=== PATIENT | female | born 1975 | race Caucasian/White ===

== ENCOUNTER 2016-10-24 15:30 | Emergency (ER) | payer SELFPAY ==
[2016-10-24 16:52] LABS: #Basophils 0.1 thou/uL (0.0-0.2); #Eosinphils 0.3 thou/uL (0.0-0.7); #Lymphocytes 1.2 thou/uL (1.20-3.40); #Monocytes 0.3 thou/uL (0.11-0.59); #Neutrophils 6.1 thou/uL (1.40-6.50); %Basophils 0.9 % (0.0-1.0); %Eosinophils 3.3 % (0.0-10.0); %Lymphocytes 15.4 % (21.0-51.0); %Monocytes 4.3 % (0.0-10.0); Hematocrit 42.9 % (36.0-47.0); Mean Platelet Volume 8.8 fL (7.4-10.4)
[2016-10-24 17:14] LABS: ALT (SGPT) 39 U/L (0-55); AST (SGOT) 23 U/L (5-34); Alkaline Phosphatase 46 U/L (40-150); Anion Gap 15 mmol/L (10-20); BUN (Urea Nitrogen) 12 mg/dL (7.0-18.7); Bilirubin, Total 0.5 mg/dL (0.2-1.2); CK (CPK) 161 U/L (29-168); Calc. Creatinine Clearance 0 mL/min (70-130); Calcium 9.7 mg/dL (7.8-10.44); Carbon Dioxide 23 mmol/L (22-29); Chloride 104 mmol/L (98-107); Estimated GFR-MDRD 78; Globulin 3.1 g/dL (2.4-3.5); Protein, Total 7.4 g/dL (6.0-8.3)
[2016-10-24 17:15] LABS: Troponin I Less than 0.010 ng/mL (< 0.028)
--- NOTE | 2016-10-24 18:46 | RAD ---
TWO VIEWS CHEST: Date: 10-24-16 Comparison: 05-23-15 History: Chest pain on the right radiating to the back. FINDINGS: No pneumothorax, pleural fluid, focal consolidation, or alveolar edema. Heart and mediastinal conto urs appear within normal limits. IMPRESSION: No acute findings. POS: [facility]
[2016-10-24 18:55] LABS: Troponin I Less than 0.010 ng/mL (< 0.028)
--- NOTE | 2016-10-24 19:51 | ERRECORD ---
[facility] EMERGENCY RECORD HPI CHEST PAIN (19:19 JROB) CHIEF COMPLAINT: Patient presents for evaluation of chest pain, ongoing. HISTORIAN: History provided by patient. LOCATION: Pain radiates, to the back, left upper chest. QUALITY: dull. SEVERITY: Current severity of pain rated as 5/10. TIME COURSE: Symptoms are worsening. ASSOCIATED WITH: No associated chills, No associated cough, No associated diaphoresis, No associated fever, No associated shortness of breath, No associated trauma, No associated upper respiratory infection, No associated vomiting. EXACERBATED BY: Patient's condition exacerbated by nothing. RELIEVED BY: Patient's condition relieved by nothing. RISK FACTORS: Coronary artery disease risk factors, not applicable for this patient, Thoracic aortic dissection risk factors, not applicable for this patient, Pulmonary embolism risk factors, not applicable to this patient. HEART SCORE: Patients history is Slightly Suspicious (0), Patients ECG is normal (0), Patients age is equal to or less than 45 (0), Patient has no risk factors known (0), Patients Troponin is equal to or less than 1 times the normal limit (0). WELLS CRITERIA FOR PE: No clinical signs and symptoms of a DVT (0), Patient does not have, or is likely to not have, a primary diagnosis of PE (0), Patient's heart rate is less than 100 (0), Patient has no history of immobilization within 3 days, nor any surgical history within the past 4 weeks (0), Patient has not had an objectively diagnosed PE or DVT previously (0), Patient does not have hemoptysis (0), Patient has not had treatment for malignancy within the last 6 months, nor palliative (0). ROS (19:21 JROB) CONSTITUTIONAL: Historian denies chills, denies fever. EYES: Historian denies vision changes. ENT: Historian denies sore throat. CARDIOVASCULAR: Historian reports chest pain, denies syncope. RESPIRATORY: Historian denies cough, denies shortness of breath. GI: Historian denies nausea, denies vomiting. GENITOURINARY FEMALE: Historian denies dysuria. NEUROLOGIC: Historian denies headache, denies sensory changes. HEMO/LYMPHATIC: Historian denies abnormal blood clotting. ALLERGIC/IMMUNOLOGIC: Historian denies frequent infections. PSYCHIATRIC: Historian denies alcohol abuse, denies drug abuse. NOTES: All systems reviewed, negative except as described above. PAST MEDICAL HISTORY (15:43 [facility]) MEDICAL HISTORY: No past medical history, Flu vaccine not up to date, Tetanus not up to date, Pneumococcal vaccine not up to &a-1R&a+25V*p+0X*z3816O*c202B*c15G*c2P*p-0X&a-25V&a+1R Name: Marge Damon : 1975 F41 MedRec: [id number] AcctNum: [id number] Prepared: Esperanza Oct 24, 2016 20:02 by Interface Page 1 of 4 pMD [facility] EMERGENCY RECORD date,. FEMALE SURGICAL HISTORY: Surgical history of hysterectomy,. PSYCHIATRIC HISTORY: Psychiatric history includes, depression. SOCIAL HISTORY: Patient denies alcohol use, Patient denies drug use, Patient is a former tobacco user, smoked cigarettes,. KNOWN ALLERGIES codeine (Unconfirmed) codeine sulfate penicillin G (Unconfirmed) penicillin G sodium sulfur: Reaction: Hives Tetanus Toxoid tetanus toxoid, adsorbed (Unconfirmed) CURRENT MEDICATIONS (15:36 BDON) None VITAL SIGNS VITAL SIGNS: BP: 122/82, Pulse: 89, Resp: 18, Temp: 98.8 (Oral), Pain: 5, O2 sat: 99 on Room Air, Time: 10/24/2016 15:39. (15:39 [facility]) BP: 124/66, Pulse: 76, Resp: 20, Temp: 99.2 (Oral), O2 sat: 98 on Room Air, Time: 10/24/2016 19:42. (19:42 [facility]) BP: 124/66, Pulse: 76, Resp: 20, Temp: 99.2, O2 sat: 98 on RA, Time: 10/24/2016 19:43. (19:43 [facility]) PHYSICAL EXAM (19:22 JROB) CONSTITUTIONAL: Vital Signs Reviewed, Patient afebrile, Pulse normal, Blood pressure normal bilaterally, Respiratory rate normal, Patient alert and oriented to person, place and time, Nursing notes reviewed. HEAD: Head exam normal, Head exam included findings of head atraumatic. EYES: Eye exam normal, Pupils equally round and reactive to light, Extraocular muscles intact. ENT: Pharynx exam normal, Mouth exam normal. NECK: Neck exam normal, no cervical adenopathy. RESPIRATORY CHEST: Breath sounds clear, No wheezing, No rales, No rhonchi. CARDIOVASCULAR: Cardiovascular assessment normal, Heart rate regular rate and rhythm, Heart sounds normal. ABDOMEN FEMALE: Abdominal exam included findings of abdomen nontender, no distension, no peritoneal signs. BACK: Back exam normal, Back exam included findings of normal inspection. UPPER EXTREMITY: Upper extremity exam normal, Upper extremity exam included findings of inspection normal, Motor strength normal, Sensation intact. &a-1R&a+25V*p+0X*i5472R*c202B*c15G*c2P*p-0X&a-25V&a+1R Name: Marge Damon : 1975 F41 MedRec: [id number] AcctNum: [id number] Prepared: Esperanza Oct 24, 2016 20:02 by Interface Page 2 of 4 pMD [facility] EMERGENCY RECORD LOWER EXTREMITY: Lower extremity exam normal, Lower extremity exam included findings of inspection normal, Motor strength normal, Sensation intact. NEURO: Neuro exam findings include patient oriented to person, place and time, no focal motor deficits, no focal sensory deficits. SKIN: Skin exam included findings of skin warm, dry. EKG INTERPRETATION (19:23 JROB) 12 LEAD EKG INTERPRETATION: 12 lead EKG interpreted by Emergency Department Physician at time of study, 12 lead EKG shows normal sinus rhythm, Rate (beats per minute): 87, with no ectopics, Interpretation: normal EKG, Conduction normal, ST segments normal, T waves normal, [place] normal, No other findings, Clinical impression: Normal EKG. RADIOLOGYINTERPRETATION (19:24 JROB) CHEST: Chest films negative, no infiltrates, no congestive heart failure, no effusion. DEHORNER: Preliminary review of x-rays by, Radiologist. MEDICATION ADMINISTRATION SUMMARY Drug Name: aspirin oral, Dose Ordered: 324 mg, Route: Oral, Status: Given, Time: 16:40 10/24/2016, Detailed record available in Medication Service section. DOCTOR NOTES (19:24 JROB) TEXT: Gave aspirin, low suspicion for cardiac etiology, will hold off on NTG. Patient has had multiple visits with chest pain in the past that were not cardiac related. EKG is normal. Ordered labs. Enzymes negative x 2. Patient reassured, pain may be anxiety/stress related, versus GI etiology, versus inflammatory etiology. Will d/c home to follow up with pmd. PATIENT STATUS: Patient has improved since arrival to emergency department. PATIENT PLAN: The patient will be discharged, The patient will follow up with primary care physician. DATA REVIEWED: Lab data reviewed, Xray data reviewed, Reviewed EKG. PROBLEM LIST No recorded problems DIAGNOSIS DIFFERENTIAL: Based on history, exam and ancillary studies if indicated: Impression: acute coronary syndrome, Impression: atypical chest pain, Impression: chest pain of unclear etiology, Impression: chest wall pain, Impression: GERD, Impression: Anxiety, Diagnoses &a-1R&a+25V*p+0X*b3683R*c202B*c15G*c2P*p-0X&a-25V&a+1R Name: Marge Damon : 1975 1 MedRec: [id number] AcctNum: [id number] Prepared: Esperanza Oct 24, 2016 20:02 by Interface Page 3 of 4 pMD [facility] EMERGENCY RECORD considered are not limited to those documented above. (19:26 JROB) FINAL: PRIMARY: CHEST PAIN UNSPECIFIED. (19:27 JROB) PRESCRIPTION No recorded prescriptions DISPOSITION PATIENT: Disposition Type: Discharge, Disposition: *Discharge Home. (19:27 JROB) Patient left the department. (19:57 EPIE) Pierce: RAKESH=ANITA Jones, Cleo QUINTERO=ANITA Akbar, Yary ORTIZOB=MD Michele, Miguel Angel FIGUEROA=ANITA Bose, Jose E MCBE=Julianna Jones &a-1R&a+25V*p+0X*i5651R*c202B*c15G*c2P*p-0X&a-25V&a+1R Name: Marge Damon : 1975 F41 MedRec: [id number] AcctNum: [id number] Prepared: Esperanza Oct 24, 2016 20:02 by Interface Page 4 of 4 pMD MTDD
--- NOTE | 2016-10-24 19:53 | PICIS ---
[facility] EMERGENCY RECORD TRIAGE (TueOct 24, 2016 15:35 BDON) TRIAGE NOTES: chest pain that started a couple hours ago. pain started on right side and radiated to back. (TueOct 24, 2016 15:35 BDON) PATIENT: NAME: Marge Damon, AGE: 41, GENDER: female, : Tue1975, TIME OF GREET: TueOct 24, 2016 15:31, PREFERRED LANGUAGE: [place] Island[place], ETHNICITY: Not or , ECODE BILLING MAP: [facility], SSN: [id number], Zip Code: [address], KG WEIGHT: [phone], PHONE: , , , PERSON ID: [id number], PCP: Usha SANCHES JAIME. ([place] Oct 24, 2016 15:35 BDON) COMPLAINT: HIGH RISK COMPLAINT: Chest Pain. (19:07 MCBE) ADMISSION: URGENCY: 2 Emergent, ADMISSION SOURCE: Home, TRANSPORT: CAR, BED: ER -03. ([place] Oct 24, 2016 15:35 BDON) SIRS SCORING: Heart Rate 55-109 (0), Temp range 96.8-101.1 (0), respiratory rate 12-24 (0), Mental Status altered: no (0), Infection or Suspected Infection: No. (15:43 MCBE) TRIAGE SCREENING: Patient denies suicidal ideation, Patient denies presence of domestic violence. (15:43 MCBE) PROVIDERS: TRIAGE NURSE: Cleo Jones RN. ([place] Oct 24, 2016 15:35 BDON) VITAL SIGNS: BP 122/82, Pulse 89, Resp 18, Temp 98.8, (Oral), Pain 5, O2 Sat 99, on Room Air, Time 10/24/2016 15:39. (15:39 MCBE) PREVIOUS VISIT ALLERGIES: codeine sulfate, penicillin G sodium, sulfur, Tetanus Toxoid. ([place] Oct 24, 2016 15:35 BDON) codeine sulfate, penicillin G sodium, sulfur, Tetanus Toxoid. (15:43 MCBE) KNOWN ALLERGIES codeine (Unconfirmed) codeine sulfate penicillin G (Unconfirmed) penicillin G sodium sulfur: Reaction: Hives Tetanus Toxoid tetanus toxoid, adsorbed (Unconfirmed) CURRENT MEDICATIONS (15:36 BDON) None VITAL SIGNS VITAL SIGNS: BP: 122/82, Pulse: 89, Resp: 18, Temp: 98.8 (Oral), Pain: 5, O2 sat: 99 on Room Air, Time: 10/24/2016 15:39. (15:39 MCBE) BP: 124/66, Pulse: 76, Resp: 20, Temp: 99.2 (Oral), O2 sat: 98 on Room Air, Time: 10/24/2016 19:42. (19:42 [facility]) BP: 124/66, Pulse: 76, Resp: 20, Temp: 99.2, O2 sat: 98 on RA, Time: 10/24/2016 19:43. (19:43 [facility]) NURSING ASSESSMENT: FALL RISK (19:12 MCBE) FALL RISK: Fall risk assessment findings include: no history of &a-1R&a+25V*p+0X*m7301Y*c202B*c15G*c2P*p-0X&a-25V&a+1R Name: Marge Damon : 1975 F41 MedRec: [id number] AcctNum: [id number] Prepared: [place] Oct 24, 2016 20:08 by Interface Page 1 of 11 pMD [facility] EMERGENCY RECORD falls (0), No sensory deficits (0), No impaired mobility (0), No confusion (0), Total score 0, No risk for fall. NURSING ASSESSMENT: HEAD-TO-TOE (15:44 MCBE) CONSTITUTIONAL: Complex assessment performed, Patient arrives ambulatory, Gait steady, History obtained from patient, Patient appears comfortable, Patient cooperative, Patient alert, Oriented to person, place and time, Skin warm, Skin dry, Skin normal in color, Mucous membranes pink, Mucous membranes moist, Patient is well-groomed. PAIN: Patient rates pain as 0 out of 10. NEURO: Pupils equally round and reactive to light, Able to close eyes, Face symmetrical, Speech normal, GCS:, Eye opening: (4) - Spontaneous, Verbal: (5) - Oriented/conversive, Motor: (6) - Obeys commands/Spontaneous, GCS Total: 15. ENT: Ear assessment findings include ear normal to inspection, Nasal assessment findings include nose normal to inspection, Mouth and throat assessment findings include mouth inspection normal. RESPIRATORY/CHEST: Breath sounds clear, Respiratory assessment findings include respiratory effort easy, Respirations regular, Conversing normally, Neck and chest exam findings include trachea midline, Chest expansion equal, Chest movement symmetrical, no signs of distress, no retractions noted. CARDIOVASCULAR: Cardiovascular assessment findings include heart rate normal, Heart rhythm normal sinus, Heart sounds normal, S1, S2, Left radial pulse +3(easily palpated, considered normal), Right radial pulse +3(easily palpated, considered normal). ABDOMEN: Abdomen assessment findings include abdomen symmetrical, Abdomen soft, non-tender, Bowel sound normal, no associated nausea, no associated vomiting, no associated diarrhea, no associated constipation. LEFT UPPER EXTREMITY: Left upper extremity assessment findings include capillary refill less than 2 seconds, Skin color normal to hand, Skin temperature to hand warm, Distal sensation intact, Muscle tone normal, radial pulse is +3, brachial pulse is +3, Inspection findings include: No pressure ulcer to the shoulder, Inspection findings include no pressure ulcer to the elbow, Inspection findings include no pressure ulcer. RIGHT UPPER EXTREMITY: Right upper extremity assessment findings include capillary refill less than 2 seconds, Skin color normal to hand, Skin temperature to hand warm, Distal sensation intact, Muscle tone normal, radial pulse is +3, brachial pulse is +3, Inspection findings include: No pressure ulcer to the shoulder, Inspection findings include no pressure ulcer to the elbow, Inspection findings include no pressure ulcer. LEFT LOWER EXTREMITY: Left lower extremity assessment findings include capillary refill less than 2 seconds, Skin color normal, Skin temperature warm, Distal sensation intact, Muscle tone normal, Inspection findings include no pressure ulcers to the hip, Inspection findings include no pressure ulcer to the sacrum, Inspection findings &a-1R&a+25V*p+0X*e7877Q*c202B*c15G*c2P*p-0X&a-25V&a+1R Name: Marge Damon : 1975 F41 MedRec: [id number] AcctNum: [id number] Prepared: [place] Oct 24, 2016 20:08 by Interface Page 2 of 11 pMD [facility] EMERGENCY RECORD include no pressure ulcer to the heel, Inspection findings include no pressure ulcer. RIGHT LOWER EXTREMITY: Right lower extremity assessment findings include capillary refill less than 2 seconds, Skin color normal, Skin temperature warm, Distal sensation intact, Muscle tone normal, Inspection findings include no pressure ulcers to the hip, Inspection findings include no pressure ulcer to the sacrum, Inspection findings include no pressure ulcer to the heel, Inspection findings include no pressure ulcer. NURSING ASSESSMENT: SKIN (19:12 MCBE) SKIN: Skin assessment findings include skin warm, Skin dry, Skin normal in color, Inspection findings include: No pressure ulcer to the shoulder, Inspection findings include no pressure ulcer to the elbow, Inspection findings include no pressure ulcers to the hip, Inspection findings include no pressure ulcer to the sacrum, Inspection findings include no pressure ulcer to the heel, Inspection findings include no pressure ulcer, Inspection findings include no pressure ulcer. YASMANY SCALE: (4) Sensory perception has no impairment, (4) Skin is rarely moist, (4) Patient walks frequently, (4) No mobility limitations, (3) Adequate nutrition, (3) Patient has no apparent problem moving, Yasmany Risk Total: 22. NURSING PROCEDURE: FORGE PRESS OPERATOR (15:43 MCBE) PATIENT IDENTIFIER: Patient actively involved in identification process, Patient's identity verified by patient stating name, Patient's identity verified by patient stating date, Patient's identity verified by hospital ID bracelet. FORGE PRESS OPERATOR: Cardiac monitoring indicated for complaint of chest pain, Patient placed on surveillance monitor, Heart rate: 83, showing normal sinus rhythm, Patient placed on non-invasive blood pressure monitor, with disposable blood pressure cuff applied, Patient placed on continuous pulse oximetry, Adult/pediatric oxisensor applied. NURSING PROCEDURE: DISCHARGE NOTE (19:43 LEE) DISCHARGE: Patient discharged to home, ambulating with assistance, family driving, accompanied by other family member, Summary of Care printed/ provided, Discharge instructions given to patient, Discharge instructions given to mother, Simple or moderate discharge teaching performed, by ERICKA MARINELLI RN, FOLLOWUP WITH PCP IN 1-2 DAYS. HOME DISCHARGE INSTRUCTIONS GIVEN. RETURN IF SYMPTOMS WORSEN OR EMERGENT CONCERNS., Above person(s) verbalized understanding of discharge instructions and follow-up care, Patient treated and evaluated by physician. BELONGINGS: Belongings and valuables with patient at time of discharge include:, Belongings remain with patient, Valuables remain with patient. VITAL SIGNS: BP: 124, / 66, Pulse: 76, Resp: 20, Temp: 99.2, O2 &a-1R&a+25V*p+0X*v9334M*c202B*c15G*c2P*p-0X&a-25V&a+1R Name: Marge Damon : 1975 F41 MedRec: [id number] AcctNum: [id number] Prepared: [place] Oct 24, 2016 20:08 by Interface Page 3 of 11 pMD [facility] EMERGENCY RECORD sat: 98, on: RA. NURSING PROCEDURE: EKG CHART (15:42 MCBE) PATIENT IDENTIFIER: Patient actively involved in identification process, Patient's identity verified by patient stating name, Patient's identity verified by patient stating date, Patient's identity verified by hospital ID bracelet. EKG: EKG indicated for complaint of chest pain. FOLLOW-UP: After procedure, EKG for interpretation given to Dr. GODFREY. NURSING PROCEDURE: IV (16:49 MCBE) PATIENT IDENITIFIER: Patient actively involved in identification process, Patient's identity verified by patient stating name, Patient's identity verified by patient stating date, Patient's identity verified by hospital ID bracelet. IV SITE 1: IV therapy indicated for hydration, IV therapy indicated for medication administration, IV established, to the left antecubital, using a 20 gauge catheter, in one attempt, IV site prepped with CHLORAPREP, Saline lock established, Flushed with normal saline (mls): 10, Labs drawn at time of placement, labeled in the presence of the patient and sent to lab. NURSING PROCEDURE: NURSE NOTES NURSES NOTES: Notes: Report received on pt. Patient sitting up in bed conversing with family. No signs of distress or discomfort. (19:16 KASA) Notes: ERMD in with patient. (19:17 KASA) NURSING PROCEDURE: TRANSPORT TO TESTS PATIENT IDENTIFIER: Patient actively involved in identification process, Patient's identity verified by patient stating name, Patient's identity verified by patient stating date, Patient's identity verified by hospital ID bracelet. (16:14 MCBE) TRANSPORT TO TESTS: Transport indicated to facilitate diagnosis, Patient transported to x-ray, via wheelchair, Accompanied by x-ray licensed psychiatric technician. (16:14 MCBE) Patient transported to x-ray, Accompanied by x-ray licensed psychiatric technician, Patient arrived in location at 1610, Patient departed location at 1620. (16:29 [facility]) ORDER DETAILS Order Name: Cardiac Profile w/CKMB & Troponin - I, Status: Active, Time: 17:20 10/24/2016, User: HANS, - Ordered for: MD Godfrey Joseph, - Entered by: MD Godfrey Joseph - [place] Oct 24, 2016 17:20, - Quantity: 1, Order Name: Cardiac Profile w/CKMB & Troponin - I, Status: Active, Time: 16:01 10/24/2016, User: HANS, &a-1R&a+25V*p+0X*a2853X*c202B*c15G*c2P*p-0X&a-25V&a+1R Name: Marge Damon : 1975 F41 MedRec: [id number] AcctNum: [id number] Prepared: [place] Oct 24, 2016 20:08 by Interface Page 4 of 11 [facility] EMERGENCY RECORD - Ordered for: MD Godfrey Joseph, - Entered by: MD Godfrey Joseph - [place] Oct 24, 2016 16:01, - Quantity: 1, Order Name: CBC with Differential, Status: Active, Time: 16:01 10/24/2016, User: HANS, - Ordered for: MD Godfrey Joseph, - Entered by: MD Godfrey Joseph - [place] Oct 24, 2016 16:01, - Quantity: 1, Order Name: CK (CPK), Status: Active, Time: 16:01 10/24/2016, User: HANS, - Ordered for: MD Godfrey Joseph, - Entered by: MD Godfrey Joseph - [place] Oct 24, 2016 16:01, - Quantity: 1, Order Name: CK (CPK), Status: Active, Time: 17:20 10/24/2016, User: HANS, - Ordered for: MD Godfrey Joseph, - Entered by: MD Godfrey Joseph - [place] Oct 24, 2016 17:20, - Quantity: 1, Order Name: Comprehensive Metabolic Panel, Status: Active, Time: 16:01 10/24/2016, User: HANS, - Ordered for: MD Godfrey Joseph - Entered by: MD Godfrey Joseph - [place] Oct 24, 2016 16:01, - Quantity: 1, Order Name: D-Dimer (Quantitative), Status: Active, Time: 16:01 10/24/2016, User: HANS, - Ordered for: MD Godfrey Joseph, - Entered by: MD Godfrey Joseph - [place] Oct 24, 2016 16:01, - Quantity: 1, Order Name: EKG 12 Lead in Emergency Room, Status: Active, Time: 16:01 10/24/2016, User: HANS, - Ordered for: MD Godfrey Joseph, - Entered by: MD Godfrey Joseph - [place] Oct 24, 2016 16:01, - Quantity: 1, Order Name: OLD EKG, Status: Done, Time: 16:15 10/24/2016, User: VALENCIA, - Ordered for: MD Godfrey Joseph, - Entered by: MD Godfrey Joseph - [place] Oct 24, 2016 16:01, - Quantity: 1, Order Name: SALINE LOCK, Status: Done, Time: 16:14 10/24/2016, User: VALENCIA, - Ordered for: MD Godfrey Joseph, - Entered by: MD Godfrey Joseph - [place] Oct 24, 2016 16:01, - Quantity: 1, Order Name: XR Chest Pa & Lat STANDARD, Status: Active, Time: 16:01 10/24/2016, User: HANS, - Ordered for: MD Godfrey Joseph, - Entered by: MD Godfrey Joseph - [place] Oct 24, 2016 16:01, - Quantity: 1. MEDICATION ADMINISTRATION SUMMARY &a-1R&a+25V*p+0X*n3913H*c202B*c15G*c2P*p-0X&a-25V&a+1R Name: Marge Damon : 1975 F41 MedRec: [id number] AcctNum: [id number] Prepared: [place] Oct 24, 2016 20:08 by Interface Page 5 of 11 pMD [facility] EMERGENCY RECORD Drug Name: aspirin oral, Dose Ordered: 324 mg, Route: Oral, Status: Given, Time: 16:40 10/24/2016, Detailed record available in Medication Service section. MEDICATION SERVICE (16:40 JROB) aspirin oral: Order: aspirin oral (aspirin) - Dose: 324 mg : Oral Schedule: Now Ordered by: Miguel Angel Godfrey MD Entered by: MD [place] Temple Oct 24, 2016 16:00 , Acknowledged by: Julianna Mata Oct 24, 2016 16:16 Documented as given by: Julianna Mata Oct 24, 2016 16:40 Patient, Medication, Dose, Route and Time verified prior to administration. Site: Medication administered P.O., Patient appears Awake and alert- acceptable, Correct patient, time, route, dose and medication confirmed prior to administration, Patient advised of actions and side-effects prior to administration, Allergies confirmed and medications reviewed prior to administration, Patient in position of comfort, Side rails up, Cart in lowest position, Family at bedside, Call light in reach. HPI CHEST PAIN (19:19 JROB) CHIEF COMPLAINT: Patient presents for evaluation of chest pain, ongoing. HISTORIAN: History provided by patient. LOCATION: Pain radiates, to the back, left upper chest. QUALITY: dull. SEVERITY: Current severity of pain rated as 5/10. TIME COURSE: Symptoms are worsening. ASSOCIATED WITH: No associated chills, No associated cough, No associated diaphoresis, No associated fever, No associated shortness of breath, No associated trauma, No associated upper respiratory infection, No associated vomiting. EXACERBATED BY: Patient's condition exacerbated by nothing. RELIEVED BY: Patient's condition relieved by nothing. RISK FACTORS: Coronary artery disease risk factors, not applicable for this patient, Thoracic aortic dissection risk factors, not applicable for this patient, Pulmonary embolism risk factors, not applicable to this patient. HEART SCORE: Patients history is Slightly Suspicious (0), Patients ECG is normal (0), Patients age is equal to or less than 45 (0), Patient has no risk factors known (0), Patients Troponin is equal to or less than 1 times the normal limit (0). WELLS CRITERIA FOR PE: No clinical signs and symptoms of a DVT (0), Patient does not have, or is likely to not have, a primary diagnosis of PE (0), Patient's heart rate is less than 100 (0), Patient has no history of immobilization within 3 days, nor any surgical history within the past 4 weeks (0), Patient has not had an &a-1R&a+25V*p+0X*e5408G*c202B*c15G*c2P*p-0X&a-25V&a+1R Name: Marge Damon : 1975 F41 MedRec: [id number] AcctNum: [id number] Prepared: [place] Oct 24, 2016 20:08 by Interface Page 6 of 11 pMD [facility] EMERGENCY RECORD objectively diagnosed PE or DVT previously (0), Patient does not have hemoptysis (0), Patient has not had treatment for malignancy within the last 6 months, nor palliative (0). ROS (19:21 JROB) CONSTITUTIONAL: Historian denies chills, denies fever. EYES: Historian denies vision changes. ENT: Historian denies sore throat. CARDIOVASCULAR: Historian reports chest pain, denies syncope. RESPIRATORY: Historian denies cough, denies shortness of breath. GI: Historian denies nausea, denies vomiting. GENITOURINARY FEMALE: Historian denies dysuria. NEUROLOGIC: Historian denies headache, denies sensory changes. HEMO/LYMPHATIC: Historian denies abnormal blood clotting. ALLERGIC/IMMUNOLOGIC: Historian denies frequent infections. PSYCHIATRIC: Historian denies alcohol abuse, denies drug abuse. NOTES: All systems reviewed, negative except as described above. PAST MEDICAL HISTORY (15:43 MCBE) MEDICAL HISTORY: No past medical history, Flu vaccine not up to date, Tetanus not up to date, Pneumococcal vaccine not up to date,. FEMALE SURGICAL HISTORY: Surgical history of hysterectomy,. PSYCHIATRIC HISTORY: Psychiatric history includes, depression. SOCIAL HISTORY: Patient denies alcohol use, Patient denies drug use, Patient is a former tobacco user, smoked cigarettes,. PHYSICAL EXAM (19:22 JROB) CONSTITUTIONAL: Vital Signs Reviewed, Patient afebrile, Pulse normal, Blood pressure normal bilaterally, Respiratory rate normal, Patient alert and oriented to person, place and time, Nursing notes reviewed. HEAD: Head exam normal, Head exam included findings of head atraumatic. EYES: Eye exam normal, Pupils equally round and reactive to light, Extraocular muscles intact. ENT: Pharynx exam normal, Mouth exam normal. NECK: Neck exam normal, no cervical adenopathy. RESPIRATORY CHEST: Breath sounds clear, No wheezing, No rales, No rhonchi. CARDIOVASCULAR: Cardiovascular assessment normal, Heart rate regular rate and rhythm, Heart sounds normal. ABDOMEN FEMALE: Abdominal exam included findings of abdomen nontender, no distension, no peritoneal signs. BACK: Back exam normal, Back exam included findings of normal inspection. UPPER EXTREMITY: Upper extremity exam normal, Upper extremity &a-1R&a+25V*p+0X*b1762J*c202B*c15G*c2P*p-0X&a-25V&a+1R Name: Marge Damon : 1975 F41 MedRec: [id number] AcctNum: [id number] Prepared: [place] Oct 24, 2016 20:08 by Interface Page 7 of 11 pMD [facility] EMERGENCY RECORD exam included findings of inspection normal, Motor strength normal, Sensation intact. LOWER EXTREMITY: Lower extremity exam normal, Lower extremity exam included findings of inspection normal, Motor strength normal, Sensation intact. NEURO: Neuro exam findings include patient oriented to person, place and time, no focal motor deficits, no focal sensory deficits. SKIN: Skin exam included findings of skin warm, dry. LAB INTERPRETATION (19:23 JROB) INTERPRETATION: I reviewed the lab results, CBC normal, Chemistry abnormal, Glucose elevated, Chemistry otherwise normal, Cardiac enzymes normal, Liver functions normal. EVENTS TRANSFER: Triage to Emergency Emergency Room -03. ([place] Oct 24, 2016 15:35 BDON) Emergency Emergency Room -03 to Holding. (19:47 EPIE) Removed from Emergency Holding. (19:57 EPIE) RADIOLOGYINTERPRETATION (19:24 JROB) CHEST: Chest films negative, no infiltrates, no congestive heart failure, no effusion. DRAGLINE OPERATOR HELPER: Preliminary review of x-rays by, Radiologist. EKG INTERPRETATION (19:23 JROB) 12 LEAD EKG INTERPRETATION: 12 lead EKG interpreted by Emergency Department Physician at time of study, 12 lead EKG shows normal sinus rhythm, Rate (beats per minute): 87, with no ectopics, Interpretation: normal EKG, Conduction normal, ST segments normal, T waves normal, [place] normal, No other findings, Clinical impression: Normal EKG. O2SAT INTERPRETATION (19:23 JROB) O2SAT: Single pulse oximetry, Oxygen saturation 99%, on room air, Oxygen saturation interpretation: Normal, No intervention required. DOCTOR NOTES (19:24 JROB) TEXT: Gave aspirin, low suspicion for cardiac etiology, will hold off on NTG. Patient has had multiple visits with chest pain in the past that were not cardiac related. EKG is normal. Ordered labs. Enzymes negative x 2. Patient reassured, pain may be anxiety/stress related, versus GI etiology, versus inflammatory etiology. Will d/c home to follow up with pmd. PATIENT STATUS: Patient has improved since arrival to emergency department. PATIENT PLAN: The patient will be discharged, The patient will follow up with primary care physician. DATA REVIEWED: Lab data reviewed, Xray data reviewed, Reviewed &a-1R&a+25V*p+0X*q5105M*c202B*c15G*c2P*p-0X&a-25V&a+1R Name: Marge Damon : 1975 F41 MedRec: [id number] AcctNum: [id number] Prepared: [place] Oct 24, 2016 20:08 by Interface Page 8 of 11 pMD [facility] EMERGENCY RECORD EKG. PROBLEM LIST No recorded problems DIAGNOSIS DIFFERENTIAL: Based on history, exam and ancillary studies if indicated: Impression: acute coronary syndrome, Impression: atypical chest pain, Impression: chest pain of unclear etiology, Impression: chest wall pain, Impression: GERD, Impression: Anxiety, Diagnoses considered are not limited to those documented above. (19:26 JROB) FINAL: PRIMARY: CHEST PAIN UNSPECIFIED. (19:27 JROB) DISPOSITION PATIENT: Disposition Type: Discharge, Disposition: *Discharge Home. (19:27 JROB) Patient left the department. (19:57 EPIE) INSTRUCTION (19:29 JROB) DISCHARGE: CHEST PAIN NONCARDIAC. FOLLOWUP: [facility] SANCHES[facility] [address] [place] [id number], [phone], Follow up with Primary Care Physician in 1-2 days. SPECIAL: Follow-up with your PCP We hope you feel better soon! We are always happy to take care of you and your family! Return to the ER immediately for any new, concerning, or worsening symptoms. PRESCRIPTION No recorded prescriptions ADMIN (19:29 JROB) DIGITAL SIGNATURE: MD Michele, Miguel Angel. RESULTS LABORATORY: D-Dimer (Quantitative) Collection DT: [place] Oct 24, 2016 17:11, *D-Dimer Test Less than 0.27 - L *mcg/mL, Range (0.27-0.43), * Reference Range Units: mcg/mL of fibrinogen equivalent, units(FEU) Based upon a retrospective study of [facility] patients in February 2006, a result of Less than 0.44 mcg/mL FEU is, predictive of the absence of a DVT or PE. . (17:13 MCBE) CBC with Differential Collection DT: [place] Oct 24, 2016 17:11, White Blood Cell (WBC) Count 8.0 thou/uL, Range (4.8-10.8), Red Blood Cell (RBC) Count 4.70 mill/uL, Range (4.20-5.40), Hemoglobin 15.0 g/dL, Range (12.0-16.0), &a-1R&a+25V*p+0X*o6482E*c202B*c15G*c2P*p-0X&a-25V&a+1R Name: Marge Damon : 1975 F41 MedRec: [id number] AcctNum: [id number] Prepared: [place] Oct 24, 2016 20:08 by Interface Page 9 of 11 pMD [facility] EMERGENCY RECORD Hematocrit 42.9 %, Range (36.0-47.0), Mean Corpuscular Volume 91.3 fl, Range (81.0-99.0), *Mean Corpuscular Hemoglobin 31.8 - H pg, Range (27.0-31.0), Mean Corpuscular HGB CONC 34.9 g/dL, Range (32.0-36.0), *RBC Distribution Width 11.2 - L %, Range (11.5-14.5), Platelet Count 214 thou/uL, Range (130-400), Mean Platelet Volume 8.8 fL, Range (7.4-10.4), *%Neutrophils 76.1 - H %, Range (42.0-75.0), *%Lymphocytes 15.4 - L %, Range (21.0-51.0), %Monocytes 4.3 %, Range (0.0-10.0), %Eosinophils 3.3 %, Range (0.0-10.0), %Basophils 0.9 %, Range (0.0-1.0), #Neutrophils 6.1 thou/uL, Range (1.40-6.50), #Lymphocytes 1.2 thou/uL, Range (1.20-3.40), #Monocytes 0.3 thou/uL, Range (0.11-0.59), #Eosinphils 0.3 thou/uL, Range (0.0-0.7), #Basophils 0.1 thou/uL, Range (0.0-0.2). (17:14 JROB) Cardiac Profile w/CKMB & TropI Collection DT: [place] Oct 24, 2016 17:11, CKMB 1.4 ng/mL, Range (0-6.6), Troponin I Less than 0.010 ng/mL, Range (< 0.028), Reference Range , 0.00 - 0.028 ng/mL Negative 0.029 - 0.29 ng/mL , Indeterminate Greater or Equal to 0.3 ng/mL Strongly suggests [place] , . (17:19 JROB) CK (CPK) Collection DT: [place] Oct 24, 2016 17:11, CK (CPK) 161 U/L, Range (29-168). (17:19 JROB) Comprehensive Metabolic Panel Collection DT: [place] Oct 24, 2016 17:11, Sodium 138 mmol/L, Range (136-145), Potassium 3.9 mmol/L, Range (3.5-5.1), Chloride 104 mmol/L, Range (98-107), Carbon Dioxide 23 mmol/L, Range (22-29), Anion Gap 15 mmol/L, Range (10-20), BUN (Urea Nitrogen) 12 mg/dL, Range (7.0-18.7), Creatinine 0.81 mg/dL, Range (0.6-1.1), Estimated GFR-MDRD 78 , Reference Range for Estimated GFR: Greater than 90, mL/min/1.73 m2 NOTE: The MDRD equation has not been validated for use, with the elderly (over 70 years of age), women, patients with, serious comorbid condition or persons with extremes of body size, muscle, mass, or nutritional status. , *Glucose 110 - H mg/dL, Range (70-105), Calcium 9.7 mg/dL, Range (7.8-10.44), Bilirubin, Total 0.5 mg/dL, Range (0.2-1.2), Protein, Total 7.4 g/dL, Range (6.0-8.3), NOTE: Plasma values are generally 0.3 to 0.5 g/dL higher than serum values, due to the presence of fibrinogen. , &a-1R&a+25V*p+0X*u1867X*c202B*c15G*c2P*p-0X&a-25V&a+1R Name: Marge Damon : 1975 F41 MedRec: [id number] AcctNum: [id number] Prepared: Esperanza Oct 24, 2016 20:08 by Interface Page 10 of 11 pMD [facility] EMERGENCY RECORD Albumin 4.3 g/dL, Range (3.5-5.0), Globulin 3.1 g/dL, Range (2.4-3.5), Alb/Glob Ratio 1.4 g/dL, Range (1.2-2.2), Alkaline Phosphatase 46 U/L, Range (40-150), AST (SGOT) 23 U/L, Range (5-34), ALT (SGPT) 39 U/L, Range (0-55). (17:19 JROB) Cardiac Profile w/CKMB & TropI Collection DT: Esperanza Oct 24, 2016 18:35, CKMB 1.4 ng/mL, Range (0-6.6), Troponin I Less than 0.010 ng/mL, Range (< 0.028), Reference Range , 0.00 - 0.028 ng/mL Negative 0.029 - 0.29 ng/mL , Indeterminate Greater or Equal to 0.3 ng/mL Strongly suggests [place] , . (19:05 JRTARIQ) Pierce: RAKESH=ANITA Jones, Cleo QUINTERO=ANITA Akbar, Yary ORTIZOB=MD Michele, Miguel Angel DUNN=ANITA Greenberg, Laina SCHNEIDER=APRIL Gastelum, Rossy FIGUEROA=ANITA Marinelli, Ericka MCBE=Julianna Jones &a-1R&a+25V*p+0X*y2208F*c202B*c15G*c2P*p-0X&a-25V&a+1R Name: Marge Damon : 1975 F41 MedRec: [id number] AcctNum: [id number] Prepared: Esperanza Oct 24, 2016 20:08 by Interface Page 11 of 11 pMD MTDD
== END 2016-10-24 19:35 | disposition home or self-care (01) ==
LOC: NAV ERS 15:30
DX: R07.9 Chest pain, unspecified (principal); F32.9 Major depressive disorder, single episode, unspecified; Z90.710 Acquired absence of both cervix and uterus; Z87.891 Personal history of nicotine dependence
CPT/HCPCS: 71020; 80053; 82553; 84484; 85025; 85379; 93005

== ENCOUNTER 2016-11-04 20:53 | Emergency (ER) | payer SELFPAY ==
[2016-11-04 21:41] LABS: Bilirubin Negative (Negative); Blood, Urine Negative (Negative); Glucose, Urine (Dipstick) Negative (Negative); Ketone, Urine Negative (Negative); Nitrite Negative (Negative); Protein, Urine (Dipstick) Negative (Neg-Trace); Urobilinogen 0.2 mg/dL (0.2-1.0)
--- NOTE | 2016-11-04 22:16 | ERRECORD ---
[facility] EMERGENCY RECORD HPI VAGINAL DISCHARGE (22:42 BLEW) CHIEF COMPLAINT: Patient presents for evaluation of vaginal discharge. HISTORIAN: History provided by patient, patient has had vaginal d/c and discomfort for 3 days. No trauma, but she is worried about a sexual exposure. No dysuria. No external rash/lesions. No prior hx of STD (only BV). LOCATION: Symptoms are localized, no radiation, No migration of pain. QUALITY: Different compared with previous episodes. SEVERITY: Maximum severity of symptoms mild, Currently symptoms are mild. TIME COURSE: Gradual onset of symptoms, are constant. ASSOCIATED WITH: No associated chills, No associated constipation, No associated diarrhea, No associated fever, No associated flank pain, No associated groin pain, No associated hematuria, No associated loss of appetite, No associated melena, No associated nausea, No associated night sweats, No associated trauma, No associated urinary tract infection signs or symptoms, No associated vomiting, No associated vaginal bleeding. MODIFYING FACTORS FEMALE: Patient has had a hysterectomy. EXACERBATED BY: Patient's condition exacerbated by nothing. RELIEVED BY: Patient's condition relieved by nothing, Patient's condition relieved by nothing because patient has not tried anything for relief. ROS (22:45 BLEW) CONSTITUTIONAL: Negative constitutional review of systems, Historian denies chills, denies fever. EYES: Negative eye review of systems. ENT: Negative ears, nose, throat review of systems. CARDIOVASCULAR: Negative cardiovascular review of systems, Historian denies chest pain, denies palpitations. RESPIRATORY: Negative respiratory review of systems, Historian denies cough, denies shortness of breath. GI: Negative gastrointestinal review of systems, Historian denies abdominal pain, denies constipation, denies diarrhea. MUSCULOSKELETAL: Negative musculoskeletal review of systems. SKIN: Negative skin review of systems. NEUROLOGIC: Negative neurologic review of systems. ENDOCRINE: Negative endocrine review of systems. HEMO/LYMPHATIC: Normal hematologic/lymphatic system review. PSYCHIATRIC: Negative psychiatric review of systems. NOTES: All other ROS is negative except as listed in HPI. PAST MEDICAL HISTORY MEDICAL HISTORY: No past medical history, Flu vaccine not up to date, Tetanus not up to date, Pneumococcal vaccine not up to date. (21:02 MBOS) FEMALE SURGICAL HISTORY: Surgical history of hysterectomy, Notes: partial. (21:02 MBOS) &a-1R&a+25V*p+0X*o5607G*c202B*c15G*c2P*p-0X&a-25V&a+1R Name: Marge Damon : 1975 F41 MedRec: [id number] AcctNum: [id number] Prepared: Tammy Nov 04, 2016 22:55 by Interface Page 1 of 3 pMD [facility] EMERGENCY RECORD PSYCHIATRIC HISTORY: No previous psychiatric history. (21:02 MBOS) SOCIAL HISTORY: Patient denies alcohol use, Patient denies drug use, Patient has no smoking history. (21:02 MBOS) NOTES: I have reviewed and agree with the PMH/PSxH/FamHx/SocHx obtained by the nurse. (22:45 BLEW) KNOWN ALLERGIES codeine (Unconfirmed) codeine sulfate penicillin G (Unconfirmed) penicillin G sodium Sulfa (Sulfonamide Antibiotics) sulfur (Unconfirmed): Reaction: Hives Tetanus Toxoid tetanus toxoid, adsorbed (Unconfirmed) CURRENT MEDICATIONS (21:00 MBOS) None VITAL SIGNS (20:58 MBOS) VITAL SIGNS: BP: 132/84, Pulse: 89, Resp: 16, Temp: 98.4 (Oral), Pain: 5, O2 sat: 97 on Room Air, Time: 11/04/2016 20:58. PHYSICAL EXAM (22:45 BLEW) CONSTITUTIONAL: Vital signs reviewed, Patient appears non toxic, Patient alert and oriented to person, place and time, Pt is in no apparent distress. HEAD: Head exam included findings of head atraumatic, normocephalic. EYES: Eye exam included findings of eyelids normal to inspection, Pupils equally round and reactive to light, Extraocular muscles intact. ENT: ENT exam normal, Nose exam normal, no nasal deformity, no bleeding from nares, Pharynx exam normal, Mouth exam normal, mucous membranes moist. NECK: Neck exam included findings of normal range of motion, Trachea midline. RESPIRATORY CHEST: Respiratory and chest exam normal, Breath sounds clear, No wheezing, No rales, Chest exam included findings of chest movement symmetrical, Chest expansion equal. CARDIOVASCULAR: Cardiovascular assessment normal, Cardiovascular exam included findings of heart rate regular rate and rhythm, Heart sounds normal. ABDOMEN FEMALE: Abdominal exam included findings of abdomen nontender, Bowel sounds normal, no mass, no pulsatile masses, no peritoneal signs. PELVIC: Speculum exam normal, no active bleeding, no lesions, no lacerations, no discharge, cervix not visualized (hx of hysterectomy), Urethral exam normal, no blood at meatus, no &a-1R&a+25V*p+0X*w8145V*c202B*c15G*c2P*p-0X&a-25V&a+1R Name: Marge Damon : 1975 F41 MedRec: [id number] AcctNum: [id number] Prepared: [facility] Nov 04, 2016 22:55 by Interface Page 2 of 3 pMD [facility] EMERGENCY RECORD edema, no prolapse, Escorted by Rufina HOWARD, External genital exam normal. BACK: Back exam included findings of normal inspection, range of motion normal, no costovertebral angle tenderness. UPPER EXTREMITY: Upper extremity exam included findings of inspection normal, Range of motion normal. LOWER EXTREMITY: Lower extremity exam included findings of inspection normal, Range of motion normal. NEURO: Neuro exam findings include patient oriented to person, place and time, Speech normal, no focal motor deficits, no focal sensory deficits. SKIN: Skin exam included findings of skin warm, dry, and normal in color. LYMPHATIC: Lymphatic exam normal. PSYCHIATRIC: Psychiatric exam included findings of patient oriented to person place and time, Normal affect. DOCTOR NOTES (22:46 BLEW) TEXT: No clear cause for reported discharge (I did not see any). No report of concern for retained f.b. Cx done and plan is for pt to f/u with PCP for culture results. Will require further testing. Body habitus and mismatched equipment limited exam somewhat. PROBLEM LIST No recorded problems DIAGNOSIS (21:54 BLEW) FINAL: PRIMARY: suprapubic pain. PRESCRIPTION No recorded prescriptions DISPOSITION PATIENT: Disposition Type: Discharge, Disposition: *Discharge Home. (21:54 BLEW) Patient left the department. (22:01 MBOS) Pierce: BLEW=DO Nevarez Brandon MBOS=ANITA Gloria, Amanda &a-1R&a+25V*p+0X*i4438E*c202B*c15G*c2P*p-0X&a-25V&a+1R Name: Marge Damon : 1975 F41 MedRec: [id number] AcctNum: [id number] Prepared: Tammy Nov 04, 2016 22:55 by Interface Page 3 of 3 pMD MTDD
--- NOTE | 2016-11-04 22:20 | PICIS ---
[facility] EMERGENCY RECORD TRIAGE (20:59 MBOS) TRIAGE NOTES: milky white vaginal discharge with cramping. (20:59 MBOS) PATIENT: NAME: Marge Damon, AGE: 41, GENDER: female, : Tue1975, TIME OF GREET: Tammy Nov 04, 2016 20:54, PREFERRED LANGUAGE: Arabic, ETHNICITY: Not or , ECODE BILLING MAP: [facility], SSN: [id number], Zip Code: [address], KG WEIGHT: 99.79, PHONE: , , , PERSON ID: [id number], PCP: Usha LEONE JAIME. (20:59 MBOS) COMPLAINT: POSSIBLE STD. (20:59 MBOS) ADMISSION: URGENCY: 3 Urgent, ADMISSION SOURCE: Home, TRANSPORT: CAR, BED: TRIAGE. (20:59 MBOS) ASSESSMENT: Assessment: milky white vaginal discharge with cramping. Hx of hysterectomy. (21:02 MBOS) PAIN: Patient complains of pain described as, on a scale 0-10 patient rates pain as 5. (21:02 MBOS) IMMUNIZATIONS: Flu vaccine not up to date, Tetanus not up to date, Pneumococcal vaccine not up to date. (21:02 MBOS) SIRS SCORING: Heart Rate 55-109 (0), Temp range 96.8-101.1 (0), respiratory rate 12-24 (0), Mental Status altered: no (0). (21:02 MBOS) PROVIDERS: TRIAGE NURSE: Amanda Gloria RN. (20:59 MBOS) VITAL SIGNS: BP 132/84, Pulse 89, Resp 16, Temp 98.4, (Oral), Pain 5, O2 Sat 97, on Room Air, Time 11/04/2016 20:58. (20:58 MBOS) PREVIOUS VISIT ALLERGIES: codeine sulfate, penicillin G sodium, sulfur, Tetanus Toxoid. (20:59 MBOS) codeine sulfate, penicillin G sodium, sulfur, Tetanus Toxoid. (21:02 MBOS) KNOWN ALLERGIES codeine (Unconfirmed) codeine sulfate penicillin G (Unconfirmed) penicillin G sodium Sulfa (Sulfonamide Antibiotics) sulfur (Unconfirmed): Reaction: Hives Tetanus Toxoid tetanus toxoid, adsorbed (Unconfirmed) CURRENT MEDICATIONS (21:00 MBOS) None VITAL SIGNS (20:58 MBOS) VITAL SIGNS: BP: 132/84, Pulse: 89, Resp: 16, Temp: 98.4 (Oral), Pain: 5, O2 sat: 97 on Room Air, Time: 11/04/2016 20:58. NURSING PROCEDURE: DISCHARGE NOTE (22:00 MBOS) DISCHARGE: Patient discharged to home, ambulating without &a-1R&a+25V*p+0X*z3787S*c202B*c15G*c2P*p-0X&a-25V&a+1R Name: Marge Damon : 1975 F41 MedRec: [id number] AcctNum: [id number] Prepared: Tammy Nov 04, 2016 23:02 by Interface Page 1 of 5 pMD [facility] EMERGENCY RECORD assistance, friend driving, accompanied by friend, Summary of Care printed/ provided, Discharge instructions given to patient, Simple or moderate discharge teaching performed, Above person(s) verbalized understanding of discharge instructions and follow-up care, Patient treated and evaluated by physician. ORDER DETAILS Order Name: GC/Chlamydia Profile by PCR, Status: Active, Time: 21:10 11/04/2016, User: MAXX, - Ordered for: DO Nevarez Brandon, - Entered by: DO Nevarez Brandon - [facility] Nov 04, 2016 21:10, - Quantity: 1, Order Name: Urinalysis w/ Rflx Microscopic, Status: Active, Time: 21:29 11/04/2016, User: MAXX, - Ordered for: DO Nevarez Brandon, - Entered by: DO Nevarez Brandon - [facility] Nov 04, 2016 21:29, - Quantity: 1, Order Name: VP3, Status: Active, Time: 21:10 11/04/2016, User: MAXX, - Ordered for: DO Nevarez Brandon, - Entered by: DO Nevarez Brandon - [facility] Nov 04, 2016 21:10, - Quantity: 1. HPI VAGINAL DISCHARGE (22:42 BLEW) CHIEF COMPLAINT: Patient presents for evaluation of vaginal discharge. HISTORIAN: History provided by patient, patient has had vaginal d/c and discomfort for 3 days. No trauma, but she is worried about a sexual exposure. No dysuria. No external rash/lesions. No prior hx of STD (only BV). LOCATION: Symptoms are localized, no radiation, No migration of pain. QUALITY: Different compared with previous episodes. SEVERITY: Maximum severity of symptoms mild, Currently symptoms are mild. TIME COURSE: Gradual onset of symptoms, are constant. ASSOCIATED WITH: No associated chills, No associated constipation, No associated diarrhea, No associated fever, No associated flank pain, No associated groin pain, No associated hematuria, No associated loss of appetite, No associated melena, No associated nausea, No associated night sweats, No associated trauma, No associated urinary tract infection signs or symptoms, No associated vomiting, No associated vaginal bleeding. MODIFYING FACTORS FEMALE: Patient has had a hysterectomy. EXACERBATED BY: Patient's condition exacerbated by nothing. RELIEVED BY: Patient's condition relieved by nothing, Patient's condition relieved by nothing because patient has not tried anything for relief. ROS (22:45 BLEW) CONSTITUTIONAL: Negative constitutional review of systems, Historian denies chills, denies fever. &a-1R&a+25V*p+0X*g1314S*c202B*c15G*c2P*p-0X&a-25V&a+1R Name: Marge Daomn : 1975 F41 MedRec: [id number] AcctNum: [id number] Prepared: Tammy Nov 04, 2016 23:02 by Interface Page 2 of 5 pMD [facility] EMERGENCY RECORD EYES: Negative eye review of systems. ENT: Negative ears, nose, throat review of systems. CARDIOVASCULAR: Negative cardiovascular review of systems, Historian denies chest pain, denies palpitations. RESPIRATORY: Negative respiratory review of systems, Historian denies cough, denies shortness of breath. GI: Negative gastrointestinal review of systems, Historian denies abdominal pain, denies constipation, denies diarrhea. MUSCULOSKELETAL: Negative musculoskeletal review of systems. SKIN: Negative skin review of systems. NEUROLOGIC: Negative neurologic review of systems. ENDOCRINE: Negative endocrine review of systems. HEMO/LYMPHATIC: Normal hematologic/lymphatic system review. PSYCHIATRIC: Negative psychiatric review of systems. NOTES: All other ROS is negative except as listed in HPI. PAST MEDICAL HISTORY MEDICAL HISTORY: No past medical history, Flu vaccine not up to date, Tetanus not up to date, Pneumococcal vaccine not up to date. (21:02 MBOS) FEMALE SURGICAL HISTORY: Surgical history of hysterectomy, Notes: partial. (21:02 MBOS) PSYCHIATRIC HISTORY: No previous psychiatric history. (21:02 MBOS) SOCIAL HISTORY: Patient denies alcohol use, Patient denies drug use, Patient has no smoking history. (21:02 MBOS) NOTES: I have reviewed and agree with the PMH/PSxH/FamHx/SocHx obtained by the nurse. (22:45 BLEW) PHYSICAL EXAM (22:45 BLEW) CONSTITUTIONAL: Vital signs reviewed, Patient appears non toxic, Patient alert and oriented to person, place and time, Pt is in no apparent distress. HEAD: Head exam included findings of head atraumatic, normocephalic. EYES: Eye exam included findings of eyelids normal to inspection, Pupils equally round and reactive to light, Extraocular muscles intact. ENT: ENT exam normal, Nose exam normal, no nasal deformity, no bleeding from nares, Pharynx exam normal, Mouth exam normal, mucous membranes moist. NECK: Neck exam included findings of normal range of motion, Trachea midline. RESPIRATORY CHEST: Respiratory and chest exam normal, Breath sounds clear, No wheezing, No rales, Chest exam included findings of chest movement symmetrical, Chest expansion equal. CARDIOVASCULAR: Cardiovascular assessment normal, Cardiovascular exam included findings of heart rate regular rate and rhythm, Heart sounds normal. &a-1R&a+25V*p+0X*g0284K*c202B*c15G*c2P*p-0X&a-25V&a+1R Name: Vik Damonsujit Dhillon : 1975 F41 MedRec: [id number] AcctNum: [id number] Prepared: Tammy Nov 04, 2016 23:02 by Interface Page 3 of 5 pMD [facility] EMERGENCY RECORD ABDOMEN FEMALE: Abdominal exam included findings of abdomen nontender, Bowel sounds normal, no mass, no pulsatile masses, no peritoneal signs. PELVIC: Speculum exam normal, no active bleeding, no lesions, no lacerations, no discharge, cervix not visualized (hx of hysterectomy), Urethral exam normal, no blood at meatus, no edema, no prolapse, Escorted by Rufina HOWARD, External genital exam normal. BACK: Back exam included findings of normal inspection, range of motion normal, no costovertebral angle tenderness. UPPER EXTREMITY: Upper extremity exam included findings of inspection normal, Range of motion normal. LOWER EXTREMITY: Lower extremity exam included findings of inspection normal, Range of motion normal. NEURO: Neuro exam findings include patient oriented to person, place and time, Speech normal, no focal motor deficits, no focal sensory deficits. SKIN: Skin exam included findings of skin warm, dry, and normal in color. LYMPHATIC: Lymphatic exam normal. PSYCHIATRIC: Psychiatric exam included findings of patient oriented to person place and time, Normal affect. EVENTS TRANSFER: Triage to Emergency Triage. (TueNov 04, 2016 20:59 MBOS) Emergency Triage to Emergency Room -05. (21:00 MBOS) Removed from Emergency Emergency Room -05. (22:01 MBOS) DOCTOR NOTES (22:46 BLEW) TEXT: No clear cause for reported discharge (I did not see any). No report of concern for retained f.b. Cx done and plan is for pt to f/u with PCP for culture results. Will require further testing. Body habitus and mismatched equipment limited exam somewhat. PROBLEM LIST No recorded problems DIAGNOSIS (21:54 BLEW) FINAL: PRIMARY: suprapubic pain. DISPOSITION PATIENT: Disposition Type: Discharge, Disposition: *Discharge Home. (21:54 BLEW) Patient left the department. (22:01 MBOS) INSTRUCTION (21:56 BLEW) DISCHARGE: VD SUSPECTED CULTURE ONLY. FOLLOWUP: [facility], [address] [place] [id number], [phone], Follow up with Primary &a-1R&a+25V*p+0X*j5208J*c202B*c15G*c2P*p-0X&a-25V&a+1R Name: Marge Damon : 1975 F41 MedRec: [id number] AcctNum: [id number] Prepared: TueNov 04, 2016 23:02 by Interface Page 4 of 5 pMD [facility] EMERGENCY [facility] Care Physician in 2-3 days. SPECIAL: You should have Dr. Leone check the results of these tests on Tuesday. If the cultures do not show and infection, other testing will need to be done. If you pain is worsening or changing in any significant way, do not hesitate to return for re-evaluation. Call your doctor or return with worsening or worrisome symptoms. PRESCRIPTION No recorded prescriptions IMAGING (22:01 MBOS) *DISCHARGE INSTRUCTIONS RECEIPT: Image captured from scanner. *SUPPLY CHARGE SHEET: Image captured from scanner. ADMIN (22:48 BLEW) DIGITAL SIGNATURE: DO Nevarez Brandon. RESULTS (21:46 BLEW) LABORATORY: Urinalysis w/ Rflx Microscopic Collection DT: TueNov 04, 2016 21:40, Color Yellow , Range (Yellow), Clarity Clear , Range (Clear), Specific [place], Urine 1.020 , Range (1.005-1.030), pH, Urine 7.0 , Range (5.0-9.0), Leukocyte Negative , Range (Negative), Nitrite Negative , Range (Negative), Protein, Urine (Dipstick) Negative mg/dL, Range (Neg-Trace), Glucose, Urine (Dipstick) Negative mg/dL, Range (Negative), Ketone, Urine Negative mg/dL, Range (Negative), Urobilinogen 0.2 mg/dL, Range (0.2-1.0), Bilirubin Negative , Range (Negative), Blood, Urine Negative , Range (Negative). Pierce: BLEW=DO Nevarez Brandon MBOS=ANITA Gloria, Amanda &a-1R&a+25V*p+0X*v4014P*c202B*c15G*c2P*p-0X&a-25V&a+1R Name: Marge Damon : 1975 F41 MedRec: [id number] AcctNum: [id number] Prepared: TueNov 04, 2016 23:02 by Interface Page 5 of 5 pMD MTDD
== END 2016-11-04 21:58 | disposition home or self-care (01) ==
LOC: NAV ERS 20:53
DX: R10.30 Lower abdominal pain, unspecified (principal)
CPT/HCPCS: 81003; 87480; 87491; 87510; 87591; 87660; 99283

== ENCOUNTER 2017-12-29 09:01 | Emergency (ER) | payer SELFPAY ==
[2017-12-29] MEDS ORDERED: Ondansetron ODT 4 MG TAB ONE (09:15)
== END 2017-12-29 09:38 | disposition home or self-care (01) ==
LOC: NAV ERS 09:01
DX: R11.0 Nausea (principal); R51 Headache; F41.9 Anxiety disorder, unspecified; T43.595A Adverse effect of other antipsychotics and neuroleptics, initial encounter; Z79.899 Other long term (current) drug therapy; Z87.891 Personal history of nicotine dependence
CPT/HCPCS: 99283; Q0162